=== PATIENT | female | born 1970 | race Asian ===

== ENCOUNTER → 2016-12-28 | Outpatient (CLI) | payer MEDICAID | LOC: MC.RAD 13:40 | DX: Z12.31 Encounter for screening mammogram for malignant neoplasm of breast (principal) ==

== ENCOUNTER 2017-05-19 19:38 | Emergency (ER) | payer MEDICAID ==
[~2017-05-19] VITALS: Ht 160 cm; Wt 90.9 kg
[2017-05-19 19:51] VITALS: BP 124/75; PULSE 83; TEMP 97.8
[2017-05-19] MEDS ORDERED: FLEXERIL 1010 MG/TAB PO (20:26)
== END 2017-05-19 20:34 | disposition home or self-care (01) ==
LOC: COL.ER 19:38
DX: S86.111A Strain of other muscle(s) and tendon(s) of posterior muscle group at lower leg level, right leg, initial encounter (principal); Z90.89 Acquired absence of other organs; Z98.890 Other specified postprocedural states; X50.1XXA Overexertion from prolonged static or awkward postures, initial encounter; Y93.01 Activity, walking, marching and hiking

== ENCOUNTER → 2018-01-27 | Outpatient (CLI) | payer MEDICAID ==
[~2018-01-27] MED LIST: FLEXERIL 1010 MG/TAB PO
== END ==
LOC: MC.RAD 07:50
DX: Z12.31 Encounter for screening mammogram for malignant neoplasm of breast (principal)

== ENCOUNTER → 2018-01-31 | Outpatient (CLI) | payer MEDICAID | LOC: MC.RAD 09:23 | DX: N64.89 Other specified disorders of breast (principal) | CPT/HCPCS: G0279 ==

== ENCOUNTER → 2019-09-02 | Outpatient (CLI) | payer MEDICAID | LOC: MC.RAD 13:53 | DX: Z12.31 Encounter for screening mammogram for malignant neoplasm of breast (principal) ==

== ENCOUNTER 2019-11-15 00:26 | Emergency (ER) | payer MEDICAID ==
[~2019-11-15] VITALS: Ht 152.4 cm; Wt 100.0 kg
[2019-11-15 02:45] VITALS: BP 145/78; PULSE 64; TEMP 98.1
== END 2019-11-15 02:55 | disposition home or self-care (01) ==
LOC: COL.ER 00:26
DX: R51 Headache (principal)

== ENCOUNTER → 2021-11-01 | Outpatient (CLI) | payer MEDICAID | LOC: MC.RAD 10-10 11:30 | DX: Z12.31 Encounter for screening mammogram for malignant neoplasm of breast (principal) ==

== ENCOUNTER 2023-11-30 09:38 | Emergency (ER) | payer SELFPAY ==
[~2023-11-30] VITALS: Ht 152.4 cm; Wt 105.5 kg
[2023-11-30 10:02] LABS: BASO # 0.1 K/mm3 (0.0-0.2); BASO % 0.6 % (0.0-2.0); EOS # 0.1 K/mm3 (0.0-0.7); EOS % 1.3 % (0.0-4.0); GRAN # 5.6 K/mm3 (1.4-6.5); GRAN % 64.2 % (42.2-75.2); HEMATOCRIT 41.5 % (37.0-47.0); HEMOGLOBIN 13.6 g/dl (12.5-16.0); LYMPH # 2.3 K/mm3 (1.2-3.4); MEAN CELL VOLUME 85 fl (80.0-100.0); MEAN CORPUSCULAR HEMOGLOBIN 28 pg (27-31); MEAN CORPUSCULAR HGB CONC 33 g/dl (33.0-37.0); MEAN PLATELET VOLUME 11.2 fl (7.4-10.4); MONO # 0.5 K/mm3 (0.1-0.6); MONO % 6.2 % (1.7-9.3); PLATELET COUNT 321 K/mm3 (130-400); RED BLOOD COUNT 4.87 M/mm3 (4.10-5.30); REDCELL DISTRIBUTION WIDTH-CV 12.9 % (11.5-14.5)
[2023-11-30 10:24] LABS: ALANINE AMINOTRANSFERASE 23 U/L (0-55); ALBUMIN 3.8 g/dL (3.5-5.0); ALKALINE PHOSPHATASE 74 U/L (40-150); ANION GAP 10 mmol/L (7-16); AST,SGOT 16 U/L (5-34); BILIRUBIN,TOTAL 0.4 mg/dL (0.2-1.2); BLOOD UREA NITROGEN 9 mg/dL (10-20); CALCIUM 9.3 mg/dL (8.4-10.2); CHLORIDE 107 mEq/L (98-107); CREATININE, serum 0.77 mg/dL (0.57-1.11); GLUCOSE 84 mg/dL (70-99); POTASSIUM 3.5 mEq/L (3.5-4.5); SODIUM 140 mEq/L (136-145); TOTAL PROTEIN 7.4 g/dl (6.2-8.1)
[2023-11-30 10:26] LABS: TROPONIN-I < 0.010 ng/mL (0.00-0.033)
[2023-11-30] MEDS ORDERED: Ondansetron 4 MG/2 ML VIAL IV ONE (10:45)
[2023-11-30] MEDS ORDERED: NS 1,000 ML IV ONE (10:45)
[2023-11-30] MEDS ORDERED: ATARAX 25MG25 MG/TAB PO (11:45)
[2023-11-30 11:59] VITALS: BP 120/87; PULSE 68; TEMP 98.1
== END 2023-11-30 12:00 | disposition home or self-care (01) ==
LOC: COL.ER 09:38
PROVIDERS: Personal Emergency Response Attendant
DX: R07.89 Other chest pain (principal); I10 Essential (primary) hypertension; Z79.899 Other long term (current) drug therapy
CPT/HCPCS: J2405; J7030